=== PATIENT | male | born 1985 | race Caucasian/White ===

== ENCOUNTER 2025-07-11 22:09 | Emergency (ER) | payer BC ==
[~2025-07-11] VITALS: Ht 182.9 cm; Wt 117.9 kg
[2025-07-11 22:21] VITALS: O2SAT 99
[2025-07-11] MEDS: KETOROLAC 15MG/ML VIAL IM ONE (23:16)
[2025-07-12] MEDS ORDERED: NAPR-1176 MT (00:46)
[2025-07-12 01:23] VITALS: BP 132/78; PULSE 105; RESP 16; TEMP 36.8; O2SAT 99
[2025-07-12] MEDS ORDERED: HYDR-4001 MT (02:03)
[2025-07-12] MEDS: ACETAMINOPHEN 500MG TABLET PO ONE (02:41)
== END 2025-07-12 02:40 | disposition home or self-care (01) ==
LOC: ER 22:09
DX: S82.142A Displaced bicondylar fracture of left tibia, initial encounter for closed fracture (principal); E11.9 Type 2 diabetes mellitus without complications; Z79.1 Long term (current) use of non-steroidal anti-inflammatories (NSAID); W21.01XA Struck by football, initial encounter; Y93.61 Activity, american tackle football; Y92.89 Other specified places as the place of occurrence of the external cause; Y99.8 Other external cause status
CPT/HCPCS: 99283; 29505; 73560; 96372; J1885